=== PATIENT | male | born 1995 | race African-American/Black ===

== ENCOUNTER 2023-09-12 16:00 | Emergency (ER) | payer OTHER ==
[~2023-09-12] VITALS: Ht 185.4 cm; Wt 95.1 kg
[2023-09-12 16:01] VITALS: BP 125/72; TEMP 99.1; O2SAT 100
[2023-09-12] MEDS ORDERED: VENTAER INH (18:42)
[2023-09-12] MEDS ORDERED: BENZ200C70 PO (18:42)
== END 2023-09-12 18:49 | disposition home or self-care (01) ==
LOC: M ED 16:00
DX: U07.1 COVID-19 (principal); Z20.822 Contact with and (suspected) exposure to COVID-19

== ENCOUNTER 2025-03-10 16:26 | Emergency (ER) | payer OTHER ==
[~2025-03-10] VITALS: Ht 188 cm; Wt 102.9 kg
[~2025-03-10 16:26] MED LIST: BENZ200C70 PO; VENTAER INH
[2025-03-10] MEDS: ACETAMINOPHEN 500 MG TAB PO ONE (17:26)
[2025-03-10] MEDS: IBUPROFEN 600 MG TAB PO ONE (17:26)
[2025-03-10] MEDS ORDERED: ONDA-282 PO (18:17)
[2025-03-10 18:24] VITALS: BP 109/56; TEMP 100.5; O2SAT 99
== END 2025-03-10 18:25 | disposition home or self-care (01) ==
LOC: M ED 16:26
DX: J09.X2 Influenza due to identified novel influenza A virus with other respiratory manifestations (principal)